=== PATIENT | female | born 1950 | race Caucasian/White ===

== ENCOUNTER 2019-09-24 08:20 | Inpatient (IN) | payer MEDICARE, BC ==
[~2019-09-24] VITALS: Ht 157.5 cm; Wt 63.0 kg
--- NOTE | ~2019-09-24 | HEMODYNAMI ---
PATIENT:ANGELIQUE RESENDIZ MEDICAL RECORD: [id number] : [birth year] LOCATION:[facility] D.2112 [facility]# [id number] ADMISSION DATE: 09/24/19 Generatedon:09/25/201912:44 Patient name: ANGELIQUE RESENDIZ Patient #: [id number] SSN: [id number] : 1950 Date of study: 09/25/2019 Page: Of Hemodynamic Procedure Report Patient Data Patient Demographics Procedure consent was obtained First Name: ANGELIQUE Gender: Female Last Name: MARTÍN : 1950 [facility] Initial: J Age: 69 year(s) Patient #: [id number] Race: SSN: [id number] Additional ID: [id number] Contact details [address]: [address] [place] [address] State: [place] City: [place] Zip code: [address] Past Medical History Allergies: No known allergies Admission Admission Data Admission Date: 09/24/2019 Admission Time: 8:47 Admit Source: Other Room #: D.2 Lab Results Lab Result Date: 09/25/2019 Lab Result Time: 0:00 Biochemistry Name Units Result Min Max BUN mg/dl 16 --(---*)-- 7 18 CK-MB ng/ml 2.7 --(---*)-- 0 3.6 Creatinine mg/dl 1.1 --(--*-)-- 0.6 1.3 eGFR ml/min 52 *-(----)-- 90 120 NONAFRICAN Troponin l ng/ml 0.038 --(--*-)-- 0 0.06 CBC Name Units Result Min Max Hematocrit % 38.5 *-(----)-- 42 54 Hemoglobin g/dl 12.2 *-(----)-- 13.5 17.5 Procedure Procedure Types Cath Procedure Diagnostic Procedure [facility] w/Coronaries FFR/IVUS FFR Initial FFR Additional Sedation Charges Moderate Sedation up to 15 minutes Moderate Sedation up to 30 minutes PCI Procedure Coronary Stent Coronary Stent Initial x2 Procedure Description Procedure Date Procedure Date: 09/25/2019 Procedure Start Time: 12:23 Procedure End Time: 12:41 Procedure Staff Name Function Gianfranco Dhaliwal MD Performing Physician Candy Rutherford RT Monitor Nia Bennett RT Scrub Sage Medina RN Nurse Gretel Bueno RT Monitor Procedure Data Cath Procedure Fluoroscopy Diagnostic fluoroscopy Total fluoroscopy Time: 3.7 time: 3.7 min min Diagnostic fluoroscopy Total fluoroscopy dose: 315 dose: 315 mGy mGy Contrast Material Contrast Material Type Amount (ml) Isovue 300 106 Entry Location Entry Primary Successful Side Size Upsize Upsize Entry Closure Succes sful Closure Location (Fr) 1 (Fr) 2 (Fr) Remarks Device Remarks Femoral Right 5 Fr 6 Fr Exoseal artery Short Estimated blood loss: 10 ml Diagnostic catheters Device Type Used For End Catheter Placement MULTIPACK Pigtail 5 Fr Ventriculography catheter MULTIPACK JL 4.0 5Fr Procedure catheter MULTIPACK 3DRC 5Fr Procedure catheter Procedure Complications No complications Procedure Medications Medication Administration Route Dosage 0.9% NaCl I.V. 100 ml/hr Oxygen etCO2 Nasal cannula 3 l/min Heparin Flush Bag added to field 2 bags (1000units/500ml NS) Lidocaine 2% added to field 20 Versed I.V. 1 mg Fentanyl 50 mcg Heparin Bolus I.V. 4000 units Plavix P.O. 75 mg Hemodynamics Rest HGB: 12.2 (g/dl) Heart Rate: 64 (bpm) Snapshots Pre Cath Intra NCS Post Cath Vital Signs Time Heart Resp SPO2 etCO2 NIBP (mmHg) Rhythm Pain Sedation Rate (ipm) (%) (mmHg) Status Level (bpm) 12:15:01 63 21 89 13.4 149/88(117) NSR 0 (11) 9(A) , No pain 12:19:25 62 12 89 23.9 133/65(95) NSR 0 (11) 9(A) , No pain 12:23:41 63 19 91 2.9 135/62(101) NSR 0 (11) 9(A) , No pain 12:27:57 65 10 96 30.6 135/70(103) NSR 0 (11) 9(A) , No pain 12:32:15 65 11 97 17.9 134/67(97) NSR 0 (11) 9(A) , No pain 12:36:31 67 13 98 10.4 143/71(100) NSR 0 (11) 9(A) , No pain 12:40:50 67 16 98 4.4 146/73(110) NSR 0 (11) 9(A) , No pain Medications Time Medication Route Dose Verified Delivered Reason Notes Effectiveness by by 12:17:01 0.9% NaCl I.V. 100 Sage Sage Per physician ml/hr Adam Medina RN RN 12:17:10 Oxygen etCO2 3 Sage Sage for low 02 sats Nasal l/min Adam Medina cannula RN RN 12:17:21 Heparin Flush added 2 Saeg Sage used for Bag to bags Adam Medina procedure (1000units/500ml field RN RN NS) 12:17:34 Lidocaine 2% added 20ml Sage Sage for local to vial Adam Medina anesthetic RN RN 12:23:31 Versed I.V. 1 mg Sage Sage for sedation Adam Medina RN RN 12:23:40 Fentanyl 50 Sage Sage for sedation mcg Adam Medina RN RN 12:30:47 Heparin Bolus I.V. 4000 Sage Sage for units Adam Medina anticoagulation RN RN 12:36:37 Plavix P.O. 75 mg Sage Sage for Adam Medina antiplatelet RN RN therapy Procedure Log Time Note 11:50:31 Informed consent obtained and on chart 11:50:42 Diagnostic Cath Status : Elective 11:52:31 Lab results completed and on chart. 11:52:34 Stress Test: no; N/A ? 11:53:00 Lab Result : BUN 16 mg/dl 11:53:00 Lab Result : Creatinine 1.1 mg/dl 11:53:00 Lab Result : eGFR NONAFRICAN 52 ml/min 11:53:00 Lab Result : Hemoglobin 12.2 g/dl 11:53:00 Lab Result : Hematocrit 38.5 % 11:55:14 Lab Result : CK-MB 2.7 ng/ml 11:55:14 Lab Result : Troponin l 0.038 ng/ml 11:55:34 Risk of Mortality: 0.9 11:55:37 Risk of blood transfusion: 2.2 11:55:46 Risk of CHIDI: 3.8 11:55:50 Admit Source: Other 11:55:55 Procedure Status Urgent Heart Cath (IP). 11:55:58 Candy Sangeeta RT(R) sent for patient. Start room use. 11:56:05 Time tracking: Regular hours (M-F 7:00 - 5:00) 11:56:09 Plan of Care:Hemodynamics will remain stable., Cardiac rhythm will remain stable., Comfort level will be maintained., Respiratory function will remain adequate., Patient/ family verbilizes understanding of procedure., Procedure tolerated without complication., Recovers from procedure without complications.. 11:56:13 Pre-procedure instructions explained to patient. 11:56:13 Pre-op teaching completed and patient verbalized understanding. 11:56:55 Patient allergic to No known allergies 12:04:36 Patient received from Med II to CCL 1 Alert and oriented. Tansferred to table in Supine position. 12:04:37 Warm blankets applied, and kurtis hugger turned on for patient comfort. 12:04:38 Correct patient and procedure confirmed by team. 12:04:39 ECG and BP/O2 sat monitors applied to patient. 12:13:55 Vital chart was started 12:14:03 Baseline sample Acquired. 12:14:07 Rhythm: sinus rhythm 12:14:08 Full Disclosure recording started 12:14:10 Family unavailable. 12:14:13 Patient NPO since Midnight. 12:14:14 Is the patient allergic to Iodine/contrast media? No. 12:14:16 Is patient on blood thinner?Yes 12:14:19 ACC The patient was administered the following blood thiners within the last 24 hours: ACCPlavix, Eliquis 12:14:21 Patient diabetic? No. 12:14:27 Previous problem with sedation/anesthesia? Yes NAUSEA 12:14:29 Snore? Yes 12:14:30 Sleep apnea? Yes 12:14:31 Deviated septum? No 12:14:32 Opens mouth fully? Yes 12:14:33 Sticks out tongue? Yes 12:14:37 Airway obstruction? Yes COPD 12:14:40 Dentures? No ? 12:14:42 Pre procedure: right dorsailis pedis pulse 1+ Palpable, but thready & weak; easily obliterated 12:14:52 Patient pain scale 0/10 ?. 12:14:56 IV patent on arrival in right wrist with 0.9% NaCl at [facility]. 12:15:02 Right groin area was prepped with chlora-prep and draped in sterile fashion 12:15:02 Alarms reviewed by R. N. 12:15:03 Sharps counted by scrub and verified by R.N. 12:15:16 GROIN PREPPED DUE TO IV IN THE RIGHT WRIST 12:15:18 Use device set Femoral Dx 12:15:19 ACIST Syringe (24289) opened to sterile field. 12:15:19 Bag Decanter (2002S) opened to sterile field. 12:15:20 ACIST Hand Control (41844) opened to sterile field. 12:15:20 ACIST Manifold (53715) opened to sterile field. 12:15:21 Tegaderm 4 x 4 (1626W) opened to sterile field. 12:15:22 Medline Cath Pack ([id number]) opened to sterile field. 12:15:22 DIAGNOSTIC Multipack 5Fr catheter set (AF7503) opened to sterile field. 12:15:23 SHEATH 5FR Morven (MJH476) opened to sterile field. 12:15:24 EMERALD Guide Wire (729-040) opened to sterile field. 12:17:01 0.9% NaCl 100 ml/hr I.V. was administered by Sage Medina RN; Per physician; Verbal order read back and verified. 12:17:10 Oxygen 3 l/min etCO2 Nasal cannula was administered by Sage Medina RN; for low 02 sats; Verbal order read back and verified. 12:17:21 Heparin Flush Bag (1000units/500ml NS) 2 bags added to field was administered by Sage Medina RN; used for procedure; Verbal order read back and verified. 12:17:34 Lidocaine 2% 20ml vial added to field was administered by Sage Medina RN; for local anesthetic; Verbal order read back and verified. 12:18:51 --------ALL STOP TIME OUT------ 12:18:51 Final Timeout: patient, procedure, and site verified with staff and physician. All members of the team are in agreement. 12:18:52 Right groin site verified by team. 12:18:54 Fire Safety Assessment: A--An alcohol-based skin anteseptic being used preoperatively., C--Open oxygen or nitrous oxide is being used., D--An ESU, laser, or fiber-optic light is being used. 12:18:57 Physical assessment completed. ASA score P 2 - A patient with mild systemic disease as per Gianfranco Dhaliwal MD. 12:19:00 3a) 45-59 Moderately reduced kidney function. 12:19:03 Maximum allowable contrast dose (3.7 X eGFR X 0.75)144 ml. 12:19:06 Sedation plan: IV Moderate Sedation Medication:Versed, Fentanyl 12::53 Procedure started. 12:23:06 Local anesthetic to right femoral artery with Lidocaine 2% by Gianfranco Dhaliwal MD.INITIAL ACCESS ONLY 12:23:15 A 5 Fr sheath was inserted into the Right Femoral artery 12:23:31 Versed 1 mg I.V. was administered by Sage Medina RN; for sedation; Verbal order read back and verified. 12:23:33 A MULTIPACK Pigtail 5 Fr catheter was advanced over the wire and used for Ventriculography. 12:23:39 EF : 60 % 12:23:40 Fentanyl 50 mcg was administered by Sage Meidna RN; for sedation; Verbal order read back and verified. 12:23:42 Catheter removed. 12:23:49 A MULTIPACK JL 4.0 5Fr catheter was advanced over the wire and used for Procedure. 12:24:10 LCA angiography performed. 12:24:40 Catheter removed. 12:24:47 A MULTIPACK 3DRC 5Fr catheter was advanced over the wire and used for Procedure. 12:24:51 RCA angiography performed. 12:26:01 GUIDE 6FR EBU 4.5 catheter ([id number]) opened to sterile field. 12:26:01 Surry Verrata Plus pressure wire (59304D) opened to sterile field. 12:26:02 SHEATH 6FR Morven (PAV942) opened to sterile field. 12:26:03 INFLATOR Merit BasixCompak (OW7245) opened to sterile field. 12:26:07 Catheter removed. 12:26:18 Sheath upsized to a 6 Fr Short. 12:26:46 6 Fr ebu4.5 guide catheter was inserted over the wire 12:26:50 ifr wire advanced. 12:26:54 FFR/IFR wire advanced. 12:26:57 Wire advanced across lesion. 12:30:07 mLAD lesion measured at .74 with IFR 12:30:47 Heparin Bolus 4000 units I.V. was administered by Sage Medina RN; for anticoagulation; Verbal order read back and verified. 12:32:14 Place stent Inflation Number: 1 A BELKIS RX 3.5 x 22 stent ([id number]) was prepped and advanced across the Prox LAD . The stent was deployed at 17 MICHELINE for 0:05 (min:sec) . 12:33:03 Stent catheter was removed intact over wire. 12:33:30 Wire redirected to CX. 12:33:36 Wire advanced across lesion. 12:33:47 mCirc lesion measured at .85 with IFR 12:34:50 Wire removed. 12:35:19 Place stent Inflation Number: 1 A BELKIS RX 3.5 x 15 stent ([id number]) was prepped and advanced across the Prox CX 70. The stent was deployed at 19 MICHELINE for 0:05 (min:sec) 0. 12:36:37 Plavix 75 mg P.O. was administered by Sage Medina RN; for antiplatelet therapy; Verbal order read back and verified. 12:37:01 Stent removed. 12:37:17 EXOSEAL 6Fr (EX600) opened to sterile field. 12:37:33 Wire removed. 12:37:33 Guide catheter removed. 12:37:46 Sheath removed intact; hemostasis achieved with Exoseal to the Right Femoral artery. 12:37:49 Procedure ended.(Physican Out) 12:38:01 Fluoroscopy time 03.70 minutes. 12:38:06 Fluoroscopy dose: 315 mGy 12:38:06 Flurop Dose total: 315 12:38:12 Dose Area Product 77844 mGy/cm. 12:38:17 Contrast amount:Isovue 300 106ml. 12:38:19 Maximum allowable dose exceeded? No. 12:38:24 Insertion/operative site no bleeding no hematoma. 12:38:32 Post right femoral artery:stable 12:38:34 Post Procedure Pulses reassessed and unchanged 12:38:41 Post-procedure physical assessment completed. ASA score P 3 - A patient with severe systemic disease as per Gianfranco Dhaliwal MD. 12:38:44 Post procedure rhythm: sinus rhythm 12:38:48 Estimated blood loss: 10 ml 12:38:50 Post procedure instruction explained to patient.Patient verbalizes understanding. 12:39:46 Procedure type changed to Cath procedure, Diagnostic procedure, LHC, [facility] w/Coronaries, FFR/IVUS, FFR Initial, FFR Additional, Sedation Charges, Moderate Sedation up to 15 minutes, Moderate Sedation up to 30 minutes, PCI procedure, Coronary Stent, Coronary Stent Initial x2 12:39:48 Procedure and supply charges have been captured, reviewed, submitted and are correct. 12:40:25 Procedure Complication : No complications 12:40:28 Vital chart was stopped 12:40:35 [facility] Findings: MVD- PCI performed (see procedure note) 12:40:53 Operative report dictated upon procedure completion. 12:40:54 See physician's report for complete and final results. 12:40:56 Report given to Pre/Post Procedure Room. 12:40:58 Patient transfered to Pre/Post Procedure Room with Stretcher. 12:41:01 Procedure ended. 12:41:01 Full Disclosure recording stopped 12:41:03 End room use (Document Last) 12:41:07 ACT drawn and resulted at ( High) out of range seconds. (normal therapeutic range 180-240 seconds). 12:41:15 ACC-PCI Only Patient was given prescriptions, or instructed by Gianfranco Dhaliwal MD to start/continue the following medications upon discharge: Plavix Intervention Summary Intervention Notes Time ActionType Lesion and Equipment Used Action# Pressure Duration Attributes 12:32:14 Place stent Prox LAD BELKIS RX 3.5 x 1 17 00:05 22 stent ([id number]) 12:35:19 Place stent Prox CX BELIKS RX 3.5 x 1 19 00:05 15 stent ([id number]) Device Usage Item Name Manufacture Quantity Catalog Hospital Part Current Minimal Lot# / Number Charge Number Stock Stock Serial# Code ACIST Syringe Acist 1 84207 912185 314144 219329 20 (69405) Medical Systems Inc Bag Decanter Microtek 1 851075 80261 938955 5 () Medical Inc. ACIST Hand Acist 1 62161 010119 005993 782081 5 Control Medical (84902) Systems Inc ACIST Manifold Acist 1 05239 241734 704804 624026 5 (97438) Medical Systems Inc Tegaderm 4 x 4 3M 1 1626W 553150 803698 938305 5 (1626W) Medline Cath Medline 1 [id number] 664282 21793 318227 5 Pack ([id number]) DIAGNOSTIC Cardinal 1 UL8769 889948 51509 841800 30 Multipack 5Fr Health catheter set (RM0691) SHEATH 5FR Terumo 1 TJO297 126555 261232 941214 5 Morven (YQZ574) EMERALD Guide Cardinal 1 502-455 678390 155539 628693 5 Wire (502-455) Health MULTIPACK Cardinal 1 850835 5 Pigtail 5 Fr Health catheter MULTIPACK JL Cardinal 1 899199 5 4.0 5Fr Health catheter MULTIPACK 3DRC Cardinal 1 608226 5 5Fr catheter Health GUIDE 6FR EBU Medtronic 1 [id number] 722631 67934 459862 0 4.5 catheter ([id number]) Surry Surry 1 59841J 574060 037474271 059312 5 Verrata Plus pressure wire (85771W) SHEATH 6FR Terumo 1 SZX941 668827 076714 938466 40 Morven (XCC148) INFLATOR Merit Merit 1 SR8923 131823 410712 001366 15 [facility] (VB0956) BELKIS RX 3.5 x Medtronic 1 [id number] 287117 4888087 124430 5 [id number] 22 stent ([id number]) BELKIS RX 3.5 x Medtronic 1 [id number] 488750 1692595 568516 5 [id number] 15 stent ([id number]) EXOSEAL 6Fr Cardinal 1 EX600 835958 363111 247111 10 (EX600) Health Signature Audit Bouse Stage Time Signature Unsigned Intra-Procedure 09/25/2019 Gretel Bueno 12:41:50 PM RT(R) Intra-Procedure 09/25/2019 Sgae 12:42:19 PM Adam BOOGIE Intra-Procedure 09/25/2019 Gianfranco Dhaliwal 12:44:29 PM [id number] [place] [address]
[2019-09-24 09:10] LABS: BASOPHILS 0.1 % (0-2); EOSINOPHILS 2.3 % (0-7); HEMATOCRIT 38.5 % (36.0-48.0); HEMOGLOBIN 12.2 g/dL (12-16); IMMATURE GRANULOCYTES 0.1 % (0-5); LYMPHOCYTES 13.4 % (15-50); MCH 28.1 pg (26.0-34.0); MCHC 31.7 g/dL (31.0-37.0); MCV 88.7 fL (80.0-100.0); MEAN PLATELET VOLUME 9.1 fL (7.4-10.4); MONOCYTES 10.4 % (2-11); NEUTROPHILS 73.7 % (40-80); RBC 4.34 10x6/uL (4.00-5.40); RDW 15.3 % (11.5-14.5)
[2019-09-24 09:12] LABS: PLATELET COUNT 177 10x3/uL (130-400)
[2019-09-24 09:13] LABS: INR 1.08 (0.85-1.17); PROTIME 13.9 SECONDS (11.6-15.0)
[2019-09-24 09:14] LABS: APTT 44.5 SECONDS (22.8-39.4); CALC OSMOLALITY 278 mosm/kg (275-300); CALCIUM 9.2 mg/dL (8.5-10.1); CARBON DIOXIDE 28.7 mmol/L (21.0-32.0); CHLORIDE - SERUM 105 mmol/L (98-107); CREATININE - SERUM 1.1 mg/dL (0.6-1.3); GLUCOSE 94 mg/dL (74-106); POTASSIUM - SERUM 4.3 mmol/L (3.5-5.1); SODIUM 139 mmol/L (136-145); UREA NITROGEN 16 mg/dL (7-18); eGFR NON AFRICAN AMERICAN 52 mL/min (90-120)
[2019-09-24 09:31] LABS: ALBUMIN 2.9 g/dL (3.4-5.0); ALKALINE PHOSPHATASE 84 U/L (30-120); ALT (SGPT) 12 U/L (10-68); BILIRUBIN - TOTAL 0.41 mg/dL (0.2-1.3); CKMB 2.7 U/L (0.0-3.6); CREATINE KINASE 49 UL (21-215); MAGNESIUM - SERUM 1.9 mg/dL (1.8-2.4); PROTEIN - SERUM 6.3 g/dL (6.4-8.2); TROPONIN-I 0.038 ng/mL (0.000-0.060)
--- NOTE | 2019-09-24 11:47 | NUR ---
PATIENT IS HERE ON THE FLOOR. SHE WAS IN BIRD PREVIOUSLY. PATIENT HAS HAD ECG DONE IN [facility], AND A IV PLACED IN HER RIGHT WRIST. SHE STATES THAT HER LAST ECG WAS IN [facility] AFTER MIDNIGHT. PATIENT STATES THAT SHE HAS NOT SLEPT SINCE TUESDAY MORNING. PATIENT STATES THAT SHE CAME TO THE HOSPITAL BECAUSE HER HEART RATE WAS HIGH. SHE WILL HAVE A HEART CATH WITH DR MELENDEZ TOMORROW. SHE STATES THAT SHE HAS NOT HAD ANY CHEST PAIN. SHE HAS OXYGEN IN PLACE AT 2L. SHE IS GETTING A TRAY NOW.
[2019-09-24 15:51] LABS: CKMB 3.4 U/L (0.0-3.6); CREATINE KINASE 54 UL (21-215); TROPONIN-I 0.048 ng/mL (0.000-0.060)
--- NOTE | 2019-09-24 22:00 | NUR ---
PT LYING IN BED AWAKE ALERT AND ORIENTED x4. NO SIGNS OR SYMPTOMS OF DISTRESS NOTED RESPIRATIONS EVEN AND UNLABORED. NO COMPLAINTS OF PAIN AT THIS TIME. CALL LIGHT WITH IN REACH. WILL CONTINUE TO MONITOR
[2019-09-24 22:16] LABS: CKMB 2.8 U/L (0.0-3.6); CREATINE KINASE 51 UL (21-215); TROPONIN-I 0.048 ng/mL (0.000-0.060)
--- NOTE | 2019-09-25 03:46 | NUR ---
PT LYING IN BED RESTING WITH EYES CLOSED. EASILY AWAKEN WITH VOICE STIMULATION. NO SIGNS OR SYMPTOMS OF DISTRESS NOTED. RESPIRATIONS EVEN AND UNLABORED. BI PAP ON. PT HAS NO COMPLAINTS OF PAIN AT THIS TIME. CALL LIGHT WITH IN REACH AND BED IS IN LOWEST POSITON . PT ENCOUARED TO CALL FOR HELP WHEN NEEDED. WILL CONTINUE TO MONITOR.
[2019-09-25 06:49] LABS: BASOPHILS 0.6 % (0-2); EOSINOPHILS 3.9 % (0-7); HEMATOCRIT 40.7 % (36.0-48.0); HEMOGLOBIN 12.5 g/dL (12-16); IMMATURE GRANULOCYTES 0.2 % (0-5); LYMPHOCYTES 18.7 % (15-50); MCH 27.7 pg (26.0-34.0); MCHC 30.7 g/dL (31.0-37.0); MCV 90.2 fL (80.0-100.0); MEAN PLATELET VOLUME 9.6 fL (7.4-10.4); MONOCYTES 9.7 % (2-11); NEUTROPHILS 66.9 % (40-80); PLATELET COUNT 202 10x3/uL (130-400); RBC 4.51 10x6/uL (4.00-5.40); RDW 15.3 % (11.5-14.5)
[2019-09-25 06:57] LABS: WBC 4.9 10x3/uL (4.8-10.8)
--- NOTE | 2019-09-25 07:08 | NUR ---
CONSENTS SIGNED. EKG DONE AND PT HAS BEEN PREP FOR NETWORK SUPPORT MANAGER. CALL LIGHT WITH IN REACH
[2019-09-25 07:44] LABS: ALBUMIN 2.9 g/dL (3.4-5.0); ANION GAP 9.4 mmol/L (8-16); BILIRUBIN - TOTAL 0.35 mg/dL (0.2-1.3); CALCIUM 9.1 mg/dL (8.5-10.1); CARBON DIOXIDE 31.1 mmol/L (21.0-32.0); POTASSIUM - SERUM 4.5 mmol/L (3.5-5.1); PROTEIN - SERUM 5.9 g/dL (6.4-8.2)
--- NOTE | 2019-09-25 12:41 | EC ---
PATIENT:ANGELIQUE RESENDIZ DATE OF SERVICE: 09/24/19 SEX: F MEDICAL RECORD: [id number] DATE OF : [birth year] LOCATION:D.M2 D.211 AGE OF PATIENT: 69 ADMISSION DATE: 09/24/19 REFERRING PHYSICIAN: INTERPRETING PHYSICIAN: TIMA DHALIWAL MD ECHOCARDIOGRAM REPORT ECHO CHARGES 4 ECHO COMPLETE Date: 09/24/19 CLINICAL DIAGNOSIS: AFIB ECHOCARDIOGRAPHIC MEASUREMENTS (adult normal given) AC root (d.<3.7cm) 2.6 cm LV Septum d (<1.2 cm> 1.1 cm Valve Excursion 1.5 cm LV Septum (systole) 1.5 cm Left Atria (s.<4.0cm> 3.1 cm LVPW d(<1.2cm) 1.1 cm RV (d.<2.3cm) 2.7 cm LVPW (sytole) 1.2 cm LV diastole(<5.6CM) 4.7 cm MV E-F(>70mm/sec) cm LV systole 3.3 cm LVOT Diameter 1.8 cm MV exc.(>10mm) cm Est.ejection fraction (50-75%) % DOPPLER: LVIT cm/sec A 59 cm/sec E 46 cm/sec LA cm/sec RVSP 18.9 mmHg LVOT 84 cm/sec AOP1/2T m/s Asc. Ao 120 cm/sec RVOT 149 cm/sec RA cm/sec PA 156 cm/sec AV Gradient Peak 5.7 mmHg AV Mean 2.9 mmHg AV Area 2.5 cm MV Gradient Peak 2.8 mmHg MV Mean 1.4 mmHg MV Area cm COMMENTS: Blind Lacer: Russ [facility] Silver Plater: 1 Dr. Dhaliwal TAPE# PACS Pericardial Effusion N DATE OF SERVICE: FINDINGS: 1. Left ventricular chamber size is within normal limits. Left ventricular systolic function is normal at 55%. 2. Left atrium, right atrium, and right ventricular chamber sizes are within normal limits. 3. Valvular structures have normal structure and motion. 4. Doppler interrogation reveals only trace mitral regurgitation, no other valvular insufficiency or stenosis. Pulmonary systolic pressure is normal, ECHOCARDIOGRAM REPORT [id number] ANGELIQUE RESENDIZ estimated at 19 mmHg. 5. No evidence of pericardial effusion or left ventricular thrombus. TRANSINT:[id number] Voice Confirmation ID: [id number] DOCUMENT ID: [id number] TIMA DHALIWAL MD at 1241 CC: [id number] DICTATION DATE: 09/24/19 1352 DIGITAL COLOR PRESS OPERATOR: 09/24/19 1423 ADM IN [facility] [address] [id number]
[2019-09-25 13:04] LABS: T4 THYROXIN - FREE 1.41 ng/dL (0.76-1.46); THYROID STIMULATING HORMONE 0.54 uIU/mL (0.36-3.74)
--- NOTE | 2019-09-25 13:39 | NUR ---
PT RETURNED FROM [facility]. RIGHT FEM CATH SITE C/D/I WITH NO S/S OF ACTIVE HEMATOMA PRESENT. FEM STOP IN PLACE @120. NS INFUSING @100ML/HR. WILL CTM.
[2019-09-25 14:00] VITALS: Ht 157.5 cm; Wt 63.0 kg
--- NOTE | 2019-09-25 14:46 | NUR ---
I have reviewed this patient and I concur with the Shift Assessment completed by the Licensed Practical Nurse today this shift.
[2019-09-25 16:59] LABS: BILIRUBIN NEGATIVE (NEGATIVE); GLUCOSE NEGATIVE (NEGATIVE); KETONE SMALL mg/dL (NEGATIVE); NITRITE NEGATIVE (NEGATIVE); SPECIFIC GRAVITY 1.015 (1.005-1.020); UROBILINOGEN NORMAL (NORMAL)
--- NOTE | 2019-09-25 19:35 | NUR ---
PT LYING IN BED AWAKE ALERT AND ORIENTED x4. NO SIGNS OR SYMPTOMS OF DISTRESS NOTED. NO COMPLAINTS OF PAIN AT THIS TIME. CALL LIGHT WITH IN REACH AND BED IS IN LOS[place]ST POSTION WILL CONTINUE TO MONITOR.
--- NOTE | 2019-09-26 02:06 | NUR ---
PT LYING N BED RESTING WITH EYES CLOSED. NO SIGNS OR SYMPTOMS OF DISTRESS NOTED. NO HEMOTOMA OR BLOOD NOTED TO RIGHT WRIST. NO COMPLAINTS OF PAIN AT THIS TIME. PT ENCOURAGED TO CALL FOR HELP WHEN NEEDED. CALL LIGHT WITH IN REACH AND BED IS IN LOWEST POSITION WILL CONTINUE TO MONITOR.
--- NOTE | 2019-09-26 02:11 | NUR ---
I have reviewed this patient and I concur with the Shift Assessment completed by the Licensed Practical Nurse today this shift.
[2019-09-26 05:18] LABS: BASOPHILS 0.2 % (0-2); EOSINOPHILS 2.5 % (0-7); HEMATOCRIT 36.3 % (36.0-48.0); IMMATURE GRANULOCYTES 0.2 % (0-5); LYMPHOCYTES 17.5 % (15-50); MCH 27.2 pg (26.0-34.0); MCHC 30.3 g/dL (31.0-37.0); MCV 89.9 fL (80.0-100.0); MONOCYTES 9.7 % (2-11); NEUTROPHILS 69.9 % (40-80); PLATELET COUNT 170 10x3/uL (130-400); RBC 4.04 10x6/uL (4.00-5.40); RDW 14.7 % (11.5-14.5); WBC 5.2 10x3/uL (4.8-10.8)
[2019-09-26 05:47] LABS: ANION GAP 8.2 mmol/L (8-16); CALCIUM 8.7 mg/dL (8.5-10.1); CARBON DIOXIDE 29.2 mmol/L (21.0-32.0); CREATININE - SERUM 0.9 mg/dL (0.6-1.3); POTASSIUM - SERUM 4.4 mmol/L (3.5-5.1)
--- NOTE | 2019-09-26 06:51 | NUR ---
INCENSION TO RIGHT GROIN AREA C/D/I.. NO HEMOTOMA MOTED. NO SIGNS OF BLOOD. WILL CONTINUE TO MONITOR. CALL LIGHT WITHIN REACH.
--- NOTE | 2019-09-26 08:09 | NUR ---
RESTING, RR EVEN AND UNLABORED. DENIES NEEDS OR PAIN AT THIS TIME. CALL LIGHT WITHIN REACH. BED IN LOWEST POSITION. WILL CONTINUE TO MONITOR.
[2019-09-26 08:33] VITALS: BP 146/63
--- NOTE | 2019-09-26 14:09 | NUR ---
D/C INSTRUCTIONS REVIEWED WITH PATIENT AND FAMILY MEMBER. BOTH VERBALIZED UNDERSTANDING AND DENIES FURTHER NEEDS AT THIS TIME. IV D/C WITH CATHETER TIP INTACT. PT LEFT WITH ALL BELONGINGS VIA WHEELCHAIR TO PERSONAL VEHICLE. SON DRIVING PT HOME.
--- NOTE | 2019-09-27 16:48 | OP ---
PATIENT NAME: ANGELIQUE RESENDIZ MEDICAL RECORD: [id number] :[birth year] LOCATION:D.M2 D.2112 ADMISSION DATE:09/24/19 SURGEON: TIMA MELENDEZ MD DATE OF OPERATION: 09/25/2019 PROCEDURES: 1. PTCA stent LAD. 2. PTCA stent left circumflex. 3. IFR LAD. 4. IFR left circumflex. 5. Left heart catheterization. 6. Selective coronary angiography. 7. Left ventriculogram. INDICATION: Angina and coronary artery disease. DESCRIPTION OF PROCEDURE: After informed consent was obtained and after detailed description of risks, benefits as well as alternative therapies, the patient elected to proceed with angiogram and angioplasty. The right radial area was prepped and draped in normal sterile fashion. Right radial artery was cannulated via modified Seldinger technique with placement of 6-[place] sheath. All catheters exchanged through this sheath. FINDINGS: The left ventriculogram was performed in standard 30-degree DELA CRUZ view, reveals good cardiac wall motion, ejection fraction estimated 60%. SELECTIVE CORONARY ANGIOGRAPHY: 1. Left main showed no significant angiographic disease. 2. Left anterior descending has 70% stenosis proximally. IFR is abnormal. 3. Left circumflex has 70% to 80% stenosis in the mid vessel. IFR is abnormal. 4. Right coronary artery is chronically totally occluded. Distal right coronary fills via left to right collateral. PTCA STENT OF THE LAD AND CIRCUMFLEX: The LAD was addressed with a 3.5 x 26 mm Grayson and the circumflex with a 3.5 x 15 mm [place]. Result was 0% residual. IMPRESSION: Successful PTCA stent of the LAD and circumflex, both going from 70+ percent initial stenosis with abnormal IFR to 0% residual. TRANSINT:[id number] Voice Confirmation ID: [id number] DOCUMENT ID: [id number] TIMA MELENDEZ MD at 1648 CC: [id number] DICTATION DATE: 09/25/19 1243 RUBBER PROCESS HAND: 09/25/19 2100 DIS IN 09/26/19 [id number] [place] [address]
--- NOTE | 2019-09-27 16:48 | CN ---
PATIENT NAME:ANGELIQUE RESENDIZ MEDICAL RECORD: [id number] : 48 LOCATION:D. D.2112 ADMIT DATE: 09/24/19 ACCOUNT: [id number] CONSULTING PHYSICIAN: TIMA MELENDEZ MD REFERRING PHYSICIAN: LOUIS OCASIO MD DATE OF CONSULTATION: 09/24/2019 DIAGNOSES: 1. Shortness of breath, dyspnea on exertion. 2. Chronic obstructive pulmonary disease. 3. Smoking. 4. Angina. 5. Abnormal ECG. 6. Atrial fibrillation, new onset. HISTORY OF PRESENT ILLNESS: Mrs. Resendiz awoke from a nap yesterday at 1:00 in the afternoon and felt palpitations. She had persistence of the palpitations, chest heaviness, shortness of breath with this, presented to [facility], was found to be in atrial fibrillation. She has a history of atrial fibrillation. DC cardioversion times 2 in the past, the last being a number of years ago. She has not had a history of ischemic heart disease. Her EKG has ST depression as well as T-wave inversions with the atrial fibrillation. She remains in atrial fibrillation at this time. PHYSICAL EXAMINATION: CONSTITUTIONAL/GENERAL APPEARANCE: Well nourished, well developed, appears stated age. EYES: Lids and conjunctivae noninjected. No discharge. No pallor. ENT: Lips within normal limit. No cyanosis. No pallor. NECK: Carotid arteries, bilateral normal upstroke. No bruits. No thrills. No jugular venous pressure or distention. CERVICAL LYMPH NODES: Nontender. Nonenlarged. THYROID: Not enlarged. No nodules. CARDIOVASCULAR: Irregularly irregular with atrial fibrillation. RESPIRATORY: Respiratory effort, unlabored. Normal curvature. No thoracic deformity. No chest wall tenderness. Percussion, resonant. Auscultation, clear. No wheezes, no rales, no rhonchi. ABDOMEN: Soft, nondistended, nontender. No abdominal pain, no vomiting and normal appetite. MUSCULOSKELETAL: No joint tenderness, normal gait, normal tone. SKIN: Warm and dry. OVERALL IMPRESSION: Atrial fibrillation, most likely this is ischemically driven secondary to the significant EKG changes and chest pressure. We will rate control her and hopefully convert her with sotalol. We will give her 1 dose of Eliquis, also give her Plavix. Plan for cardiac catheterization. Plan for DC cardioversion as well tomorrow, if she still remains in the atrial fibrillation as this will be within 48 hours of the onset. TRANSINT:[id number] Voice Confirmation ID: [id number] DOCUMENT ID: [id number] CONSULT REPORT [id number] ANGELIQUE RESENDIZ, TIMA FERMIN at [id number] CC: [id number] DICTATION DATE: 09/24/19 1045 ADULT LITERACY INSTRUCTOR: 09/24/19 1435 DIS IN 09/26/19 [facility] [address] [place] [address]
== END 2019-09-26 14:19 | disposition home or self-care (01) | DRG 247 ==
LOC: D.ER 08:20 → D.M2 08:47
PROVIDERS: Family Medicine; ADMIT Internal Medicine Nephrology; ATTEND Internal Medicine Nephrology
PROC: 027135Z Dilation of Coronary Artery, Two Arteries with Two Drug-eluting Intraluminal Devices, Percutaneous Approach (ICD-10-PCS; principal; 2019-09-25)
PROC: 4A033BC Measurement of Arterial Pressure, Coronary, Percutaneous Approach (ICD-10-PCS; 2019-09-25)
PROC: 4A023N7 Measurement of Cardiac Sampling and Pressure, Left Heart, Percutaneous Approach (ICD-10-PCS; 2019-09-25)
PROC: B2111ZZ Fluoroscopy of Multiple Coronary Arteries using Low Osmolar Contrast (ICD-10-PCS; 2019-09-25)
PROC: B2151ZZ Fluoroscopy of Left Heart using Low Osmolar Contrast (ICD-10-PCS; 2019-09-25)
DX: I25.119 Atherosclerotic heart disease of native coronary artery with unspecified angina pectoris (principal); I48.20 Chronic atrial fibrillation, unspecified; I10 Essential (primary) hypertension; J44.9 Chronic obstructive pulmonary disease, unspecified; K21.9 Gastro-esophageal reflux disease without esophagitis; R94.31 Abnormal electrocardiogram [ECG] [EKG]; Z87.891 Personal history of nicotine dependence